=== PATIENT | male | born 1985 | race Caucasian/White ===

== ENCOUNTER 2018-06-18 20:52 | Emergency (ER) | payer OTHER ==
--- NOTE | 2018-06-18 21:23 | EDM.PDOC ---
ED HPI GENERAL MEDICAL PROBLEM - General Chief Complaint: Upper Extremity Injury/Pain Stated Complaint: POSS PULLED MUSCLE Time Seen by Provider: 06/18/18 21:03 Source of Information: Reports: Patient History Limitations: Reports: No Limitations - History of Present Illness INITIAL COMMENTS - FREE TEXT/NARRATIVE: Patient is a 32-year-old male presents emergency Department with right upper extremity arm pain. Patient states he was at work he pulled himself up onto a rink and felt the muscle pop and the muscle belly basically roll up into his arm. Patient complains of some weakness and pain currently. He is able to flex and extend his arm. Patient denies any other injury at this time. Onset: Sudden Duration: Hour(s): (1), Constant Location: Reports: Upper Extremity, Right Quality: Reports: Ache, Throbbing Severity: Moderate Improves with: Reports: None Worsens with: Reports: Movement Context: Reports: Activity, Lifting, Other (See history of present illness) Associated Symptoms: Reports: No Other Symptoms Right Arm Pain Score (Numeric/FACES): 6 - Related Data Allergies Allergy/AdvReac Type Severity Reaction Status Date / Time Sulfa (Sulfonamide Allergy Rash Verified 06/18/18 21:07 Antibiotics) Home Meds: Home Meds . [No Known Home Meds] 06/18/18 [History] Past Medical History - Past Health History Medical/Surgical History: Denies Medical/Surgical History Social & Family History - Tobacco Use Smoking Status *Q: Never Smoker Second Hand Smoke Exposure: No - Caffeine Use Caffeine Use: Reports: Coffee, Energy Drinks, Soda, Tea - Recreational Drug Use Recreational Drug Use: No Review of Systems - Review of Systems Review Of Systems: See Below Constitutional: Reports: No Symptoms Eyes: Reports: No Symptoms Ears: Reports: No Symptoms Nose: Reports: No Symptoms Mouth/Throat: Reports: No Symptoms Respiratory: Reports: No Symptoms Cardiovascular: Reports: No Symptoms GI/Abdominal: Reports: No Symptoms Genitourinary: Reports: No Symptoms Musculoskeletal: Reports: Arm Pain, Muscle Pain Skin: Reports: No Symptoms Neurological: Reports: No Symptoms Psychiatric: Reports: No Symptoms ED EXAM, GENERAL - Physical Exam Exam: See Below Exam Limited By: No Limitations General Appearance: Alert, WD/WN, Mild Distress Ears: Normal External Exam, Normal Canal, Hearing Grossly Normal Nose: Normal Inspection, Normal Mucosa, No Blood Throat/Mouth: Normal Inspection, Normal Lips, Normal Voice, No Airway Compromise Head: Atraumatic, Normocephalic Neck: Normal Inspection, Supple, Full Range of Motion Respiratory/Chest: No Respiratory Distress, Lungs Clear, Normal Breath Sounds, No Accessory Muscle Use Cardiovascular: Normal Peripheral Pulses, Regular Rate, Rhythm GI/Abdominal: Non-Tender, No Distention Back Exam: Full Range of Motion Extremities: Normal Inspection, Arm Pain, Limited Range of Motion (Patient has flexion and and extension capabilities. That he has limited flexion with some weakness and pain.) Neurological: Alert, Oriented, CN II-XII Intact, Normal Cognition, Normal Gait Psychiatric: Normal Affect, Normal Mood Skin Exam: Warm, Dry, Intact, Normal Color, No Rash Course - Vital Signs Last Recorded V/S: Last Vital Signs Temp 99.3 F 06/18/18 21:01 Pulse 88 06/18/18 21:01 Resp 13 06/18/18 21:01 BP 156/94 H 06/18/18 21:01 Pulse Ox 98 06/18/18 21:01 - Orders/Labs/Meds Orders: Active Orders 24 hr Category Date Time Status Communication Order [RC] ASDIRECTED Care 06/18/18 21:18 Ordered Departure - Departure Time of Disposition: 21:24 Disposition: Home, Self-Care 01 Condition: Good Clinical Impression: Biceps muscle tear Qualifiers: Encounter type: initial encounter Laterality: right Qualified Code(s): S46.211A - Strain of muscle, fascia and tendon of other parts of biceps, right arm, initial encounter - Discharge Information *PRESCRIPTION DRUG MONITORING PROGRAM REVIEWED*: Not Applicable *COPY OF PRESCRIPTION DRUG MONITORING REPORT IN PATIENT MANE: Not Applicable Instructions: Biceps Tendon Disruption (Distal), How to Use a Sling, Easy-to- Read Referrals: PCP,None [Primary Care Provider] - Forms: ED Department Discharge Additional Instructions: #1. Patient has an appointment scheduled for MRI of his upper extremity on tomorrow. #2. Patient is being instructed to call Dr. DENIS's office on tomorrow to make an appointment for follow-up after his MRI. #3. Patient's being instructed to use anti-inflammatory such as Motrin or Naprosyn or he may use Tylenol for pain control. #4 patient is being placed in a sling for support and is instructed on its use and diffuse. #5. Patient is being placed on a weight restriction no heavy lifting with his right arm nothing more than 3-5 pounds. - My Orders Last 24 Hours: My Active Orders 06/18/18 21:18 Communication Order [RC] ASDIRECTED - Assessment/Plan Last 24 Hours: My Active Orders 06/18/18 21:18 Communication Order [RC] ASDIRECTED
== END 2018-06-18 21:34 | disposition home or self-care (01) ==
LOC: JD.ED 20:52
DX: S46.211A Strain of muscle, fascia and tendon of other parts of biceps, right arm, initial encounter (principal); Z88.2 Allergy status to sulfonamides; X50.1XXA Overexertion from prolonged static or awkward postures, initial encounter
CPT/HCPCS: 99283

== ENCOUNTER 2018-07-28 10:05 | Day surgery (SDC) | payer OTHER ==
[~2018-07-28 10:05] MED LIST: Lidocaine 1%/Sod Bicarbonate in NS 8.4% 1 ML Syringe IDERM PRN; Sodium Chloride 0.9% 10 ML Syringe FLUSH PRN
[2018-07-28] MEDS: Lactated Ringers 1,000 ML IV SCH ×2 (10:30→15:48)
[2018-07-28] MEDS ORDERED: Albuterol 0.083% 2.5 MG/3 ML Neb Soln NEB ONE (10:41)
--- NOTE | 2018-07-28 10:46 | PCM.PREANE ---
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.) Type of Anesthesia Reaction: Other (see below) (History of a challenging intubation ) Family History of Anesthesia Reaction: No Transfusion History: No Prior Transfusion(s) Intubation History: History of Difficulty Intubation - Review of Systems General: No Symptoms Pulmonary: No Symptoms (quit smoking in 2007) Cardiovascular: No Symptoms (undiagnosed elevated high blood pressure with no treatment.) Gastrointestinal: No Symptoms Neurological: Numbness (left hand) Other: Reports: None - Physical Assessment NPO Status Date: 07/27/18 NPO Status Time: 21:00 Pulse: 69 O2 Sat by Pulse Oximetry: 92 Respiratory Rate: 16 Blood Pressure: 176/108 Temperature: 36.8 C Height: 1.78 m Weight: 121.109 kg ASA Class: 2 Mental Status: Alert & Oriented x3 Airway Class: Mallampati = 2 Dentition: Reports: Normal Dentition, Caries Thyro-Mental Finger Breadths: 3 Mouth Opening Finger Breadths: 3 ROM/Head Extension: Full Lungs: Clear to Auscultation, Normal Respiratory Effort, Decreased Breath Sounds Cardiovascular: Regular Rate, Regular Rhythm, No Murmurs - Lab Values: MRSA screen negative. Labs reviewed and noted and within acceptable ranges to proceed with scheduled procedure. - Imaging/EKG Impressions: EKG: SR rate=71, ST elevation, probable normal early repolarization pattern. - Allergies Allergies/Adverse Reactions: Allergies Allergy/AdvReac Type Severity Reaction Status Date / Time Sulfa (Sulfonamide Allergy Rash Verified 06/18/18 21:07 Antibiotics) - Anesthesia Plan Pre-Op Medication Ordered: None - Acknowledgements Anesthesia Type Planned: General Anesthesia Pt an Appropriate Candidate for the Planned Anesthesia: Yes Alternatives and Risks of Anesthesia Discussed w Pt/Guardian: Yes Pt/Guardian Understands and Agrees with Anesthesia Plan: Yes PreAnesthesia Questionnaire - Past Health History Medical/Surgical History: Denies Medical/Surgical History Cardiovascular History: Reports: Other (See Below) Other Cardiovascular History: undiagnosed hypertension Gastrointestinal History: Endocrine/Metabolic History: Reports: Obesity/BMI 30+ - Past Surgical History Musculoskeletal Surgical History: Reports: Other (See Below) Other Musculoskeletal Surgeries/Procedures:: ORIF right wrist, right biceps tendon - SUBSTANCE USE Smoking Status *Q: Former Smoker Tobacco Use Within Last Twelve Months: Snuff/Dip Recreational Drug Use History: No - HOME MEDS Home Medications: Home Meds Acetaminophen/HYDROcodone [[place] 325-5 MG] 1 tab PO ASDIRECTED PRN 07/28/18 [ History] - CURRENT (IN HOUSE) MEDS Current Meds: Current Medications Lactated Ringer's (Ringers, Lactated) 1,000 mls @ 125 mls/hr IV ASDIRECTED DESTINY Stop: 07/28/18 23:00 Lidocaine/Sodium Bicarbonate (Buffered Lidocaine 1% In Ns 8.4%) 0.25 ml IDERM ONETIME PRN PRN Reason: Prior to IV Start Stop: 07/28/18 18:00 Sodium Chloride (Saline Flush) 10 ml FLUSH ASDIRECTED PRN PRN Reason: Keep Vein Open Stop: 07/28/18 18:00
[2018-07-28] MEDS ORDERED: Dexamethasone 4 MG/ML SDV ONE (11:07)
[2018-07-28] MEDS ORDERED: Lactated Ringers 1,000 ML ONE (11:07)
[2018-07-28] MEDS ORDERED: Midazolam 1 MG/ML 2 ML SDV ONE ×2 (11:07→11:09)
[2018-07-28] MEDS ORDERED: Ondansetron 4 MG/2 ML SDV ONE (11:07)
[2018-07-28] MEDS ORDERED: ceFAZolin 1 GM Vial ONE (11:07)
[2018-07-28] MEDS ORDERED: Propofol 200 MG/20 ML SDV ONE ×2 (11:07→11:12)
[2018-07-28] MEDS ORDERED: Rocuronium 50 MG/5 ML Vial ONE ×2 (11:07→11:08)
[2018-07-28] MEDS ORDERED: fentaNYL 250 MCG/5 ML SDV ONE ×2 (11:07→12:48)
[2018-07-28] MEDS ORDERED: Lidocaine 1% 4 ML ONE (11:08)
[2018-07-28] MEDS ORDERED: Succinylcholine/Normal Saline 100 MG/5 ML Syringe ONE (11:14)
[2018-07-28] MEDS: Bupivacaine 0.25% 30 ML SDV ONE ×2 (12:07→14:08)
[2018-07-28] MEDS ORDERED: HYDROmorphone 0.5 MG/0.5 ML Syringe ONE ×3 (12:50→15:25)
[2018-07-28] MEDS ORDERED: Ketamine 500 mg/10 ML MDV ONE (12:52)
--- NOTE | 2018-07-28 14:31 | CR ---
Right elbow: Fluoroscopic spot views are obtained of the right elbow utilizing C-arm device. Study shows biceps tendon repair. Fluoroscopy time given as 25.3 seconds. Impression: 1. Operative study. Diagnostic code #2
[2018-07-28] MEDS ORDERED: Meperidine 50 MG/ML Vial IVPUSH PRN (14:33)
[2018-07-28] MEDS ORDERED: diphenhydrAMINE 50 MG/ML SDV IVPUSH PRN (14:33)
[2018-07-28] MEDS ORDERED: Ondansetron 4 MG/2 ML SDV IVPUSH PRN ×2 (14:33→17:46)
--- NOTE | 2018-07-28 14:33 | PCM.POSTAN ---
POST ANESTHESIA ASSESSMENT - MENTAL STATUS Mental Status: Alert, Oriented - VITAL SIGNS Pulse Rate: 93 SaO2: 91 Resp Rate: 14 Blood Pressure: 171/99 Temperature: 36.9 C - RESPIRATORY Respiratory Status: Respiratory Rate WNL, Airway Patent, O2 Saturation Stable, Supplemental Oxygen - CARDIOVASCULAR CV Status: Pulse Rate WNL, Blood Pressure Stable - GASTROINTESTINAL GI Status: No Symptoms - PAIN Pain Score: 0 - POST OP HYDRATION Hydration Status: Adequate & Stable
[2018-07-28] MEDS: fentaNYL 100 MCG/2 ML SDV IVPUSH PRN ×3 (14:42→15:44)
[2018-07-28] MEDS: HYDROmorphone 0.5 MG/0.5 ML Syringe IVPUSH ONE ×2 (14:53→15:27)
[2018-07-28] MEDS ORDERED: hydrALAZINE 20 MG/ML SDV IVPUSH PRN ×2 (14:58→17:40)
[2018-07-28] MEDS ORDERED: Labetalol 100 MG/20 ML MDV ONE (15:01)
[2018-07-28] MEDS ORDERED: Cyclobenzaprine 10 MG Tab PO ONE (15:32)
[2018-07-28] MEDS ORDERED: Acetaminophen/HYDROcodone 325-5 MG Tab PO PRN (16:58)
--- NOTE | 2018-07-28 17:10 | PCM.SN ---
- Free Text/Narrative Note: In to See Joe. Overall he is doing well s/p R Bicep repair day 0. He currently states his pain is 4-5/10 and denies and F/C, Headache, N/V/D, Chest pain, SOB, Cough. His BP has been elevated s/p surgery, was reported to be 160's/116, but has now gone down to 141/88. Talked with him and his who state he doesn't officially have a history of HTN, but he also hasn't gone to the doctor to be diagnosed. She states she is concerned that his BP is usually very elevated with stress and that he may also have Sleep Apnea- he snores and tends to be orthostatic. He hasn't had a sleep study, but is interested in him trying CPAP while he is here. I will put that order in and have Respiratory Therapy see him tonight. He is currently on 3L NC, was mid-80s per nursing on RA. He is not normally on O2 at home. No other concerns from nursing. Urinating. Using Incentive Spirometry. DVT prophylaxis. Physical Exam unremarkable- PERRLA, Lungs Clear, Normal Heart sounds, Neurovascularly intact in extremities with 3+ pulses. Will monitor his O2 continuously and BP Q4H while here on the floor for extended recovery.
[2018-07-28] MEDS ORDERED: Cyclobenzaprine 10 MG Tab PO PRN (17:40)
[2018-07-28] MEDS ORDERED: Acetaminophen 325 MG Tab PO PRN (17:44)
[2018-07-28] MEDS ORDERED: Scopolamine 1.5 MG Transdermal Patch TRDERM PRN (17:45)
[2018-07-28] MEDS: Acetaminophen/oxyCODONE 325-5 MG Tab PO PRN (17:56)
[2018-07-28] MEDS ORDERED: HYDROmorphone 1 MG/ML Syringe IVPUSH PRN (19:16)
--- NOTE | 2018-07-28 19:24 | PCM48HPAN ---
Post Anesthesia Note - EVALUATION WITHIN 48HRS OF ANESTHETIC Vital Signs in Normal Range: Yes Patient Participated in Evaluation: Yes Respiratory Function Stable: Yes Airway Patent: Yes Cardiovascular Function Stable: Yes Hydration Status Stable: Yes Pain Control Satisfactory: No (6/10 rated.) Nausea and Vomiting Control Satisfactory: Yes Mental Status Recovered: Yes Pulse Rate: 93 SaO2: 90 Resp Rate: 20 Temperature: 36.9 C Blood Pressure: 171/99 - COMMENTS/OBSERVATIONS Free Text/Narrative:: Discussed with patient and patient's options for improved pain control. Patient rates pain 6/10. Orders received from SEVERIANO Arana for hydoxizine, and anesthesia provided a dilauded IV order as well. Patient and informed again on interscalene block, and also addressed were the benefits and risks. Patient states pain location primarily noted in distal forearm area. Potential of block not able to catch the distal forearm addressed, and decision to wait on block at this time noted. Patient and encouraged to have nurse notify anesthesia if pain control is unsatisfactory.
[2018-07-28] MEDS: hydrOXYzine HCl 25 MG Tab PO PRN (19:37)
[2018-07-29] MEDS: Acetaminophen/oxyCODONE 325-5 MG Tab PO PRN ×3 (01:01→09:43)
--- NOTE | 2018-07-29 07:07 | PCM.CONSN ---
- General Info Date of Service: 07/29/18 Admission Dx/Problem (Free Text): Same day surgery Subjective Update: In to see Joe. He reports 5/10 pain. No concerns otherwise. BP has been better today. He reports baseline is 130-135/60s. He has not been medicated for this while here. Functional Status: Reports: Pain Controlled, Tolerating Diet, Ambulating, Urinating, Incentive Spirometry. Denies: New Symptoms - Review of Systems General: Reports: No Symptoms HEENT: Reports: No Symptoms Pulmonary: Reports: No Symptoms Cardiovascular: Reports: No Symptoms Gastrointestinal: Reports: No Symptoms Genitourinary: Reports: No Symptoms Musculoskeletal: Reports: Arm Pain Skin: Reports: No Symptoms Neurological: Reports: No Symptoms Psychiatric: Reports: No Symptoms - Patient Data Vitals - Most Recent: Last Vital Signs Temp 98.2 F 07/29/18 04:56 Pulse 71 07/29/18 04:56 Resp 16 07/29/18 04:56 BP 149/82 H 07/29/18 04:56 Pulse Ox 96 07/29/18 06:58 Weight - Most Recent: 266 lb 15.994 oz I&O - Last 24 Hours: Intake & Output 07/28/18 07/29/18 07/29/18 22:59 06:59 14:59 Intake Total 450 Balance 450 Med Orders - Current: Current Medications Acetaminophen (Tylenol) 650 mg PO Q4H PRN PRN Reason: Pain Cyclobenzaprine HCl (Flexeril) 10 mg PO Q8H PRN PRN Reason: Spasms Last Admin: 07/29/18 01:01 Dose: 10 mg Hydralazine HCl (Apresoline) 4 mg IVPUSH Q2H PRN PRN Reason: Hypertension Hydromorphone HCl (Dilaudid) 1 mg IVPUSH Q2H PRN PRN Reason: Pain Last Admin: 07/28/18 22:27 Dose: 1 mg Hydroxyzine HCl (Atarax) 25 - 50 mg PO Q6H PRN PRN Reason: Muscle Spasms Last Admin: 07/28/18 19:37 Dose: 50 mg Meperidine HCl (Meperidine) 12.5 mg IVPUSH ONETIME PRN PRN Reason: Shivering Miscellaneous Information (Remove Patch) 1 ea TRDERM Q72H DESTINY Last Admin: 07/28/18 17:57 Dose: Not Given Ondansetron HCl (Zofran) 4 mg IVPUSH Q4H PRN PRN Reason: Nausea Oxycodone/Acetaminophen (Percocet 325-5 Mg) 1 - 2 tab PO Q4H PRN PRN Reason: Pain Last Admin: 07/29/18 04:52 Dose: 2 tab Scopolamine (Transderm-Scop) 1.5 mg TRDERM Q72H PRN PRN Reason: Nausea Discontinued Medications Hydrocodone Bitart/Acetaminophen ([place] 325-5 Mg) 1 tab PO ASDIRECTED PRN PRN Reason: Pain Albuterol (Proventil Neb Soln) 2.5 mg NEB ONETIME ONE Stop: 07/28/18 10:42 Last Admin: 07/28/18 10:48 Dose: 2.5 mg Bupivacaine HCl (Marcaine 0.25%) Confirm Administered Dose 30 ml .ROUTE .STK- MED ONE Stop: 07/28/18 11:46 Last Admin: 07/28/18 14:08 Dose: 10 ml Cefazolin Sodium (Ancef) Confirm Administered Dose 2 gm .ROUTE .STK-MED ONE Stop: 07/28/18 11:08 Cyclobenzaprine HCl (Flexeril) 10 mg PO ONETIME ONE Stop: 07/28/18 15:33 Last Admin: 07/28/18 16:28 Dose: 10 mg Dexamethasone (Dexamethasone) Confirm Administered Dose 4 mg .ROUTE .STK-MED ONE Stop: 07/28/18 11:08 Diphenhydramine HCl (Benadryl) 25 mg IVPUSH Q6H PRN PRN Reason: Pruritis Stop: 07/28/18 18:00 Fentanyl (Sublimaze) Confirm Administered Dose 250 mcg .ROUTE .STK-MED ONE Stop: 07/28/18 11:08 Fentanyl (Sublimaze) Confirm Administered Dose 250 mcg .ROUTE .STK-MED ONE Stop: 07/28/18 12:49 Fentanyl (Sublimaze) 50 mcg IVPUSH Q5M PRN PRN Reason: Pain Stop: 07/28/18 18:00 Last Admin: 07/28/18 15:44 Dose: 50 mcg Hydralazine HCl (Apresoline) 4 mg IVPUSH Q2H PRN PRN Reason: Hypertension Stop: 07/28/18 19:00 Hydromorphone HCl (Dilaudid) Confirm Administered Dose 0.5 mg .ROUTE .STK-MED ONE Stop: 07/28/18 12:51 Hydromorphone HCl (Dilaudid) Confirm Administered Dose 0.5 mg .ROUTE .STK-MED ONE Stop: 07/28/18 12:51 Hydromorphone HCl (Dilaudid) 0.5 mg IVPUSH ONETIME ONE Stop: 07/28/18 14:34 Last Admin: 07/28/18 15:27 Dose: 0.5 mg Hydromorphone HCl (Dilaudid) Confirm Administered Dose 0.5 mg .ROUTE .STK-MED ONE Stop: 07/28/18 15:26 Last Admin: 07/28/18 16:43 Dose: Not Given Lactated Ringer's (Ringers, Lactated) 1,000 mls @ 125 mls/hr IV ASDIRECTED DESTINY Stop: 07/28/18 23:00 Last Admin: 07/28/18 15:48 Dose: 125 mls/hr Lactated Ringer's (Ringers, Lactated) Confirm Administered Dose 1,000 mls @ as directed .ROUTE .STK-MED ONE Stop: 07/28/18 11:08 Lidocaine HCl (Xylocaine-Mpf 1%) Confirm Administered Dose 4 mls @ as directed .ROUTE .STK-MED ONE Stop: 07/28/18 11:09 Ketamine HCl (Ketalar) Confirm Administered Dose 500 mg .ROUTE .STK-MED ONE Stop: 07/28/18 12:53 Labetalol HCl (Normodyne) Confirm Administered Dose 100 mg .ROUTE .STK-MED ONE Stop: 07/28/18 15:02 Lidocaine/Sodium Bicarbonate (Buffered Lidocaine 1% In Ns 8.4%) 0.25 ml IDERM ONETIME PRN PRN Reason: Prior to IV Start Stop: 07/28/18 18:00 Last Admin: 07/28/18 10:29 Dose: 0.25 ml Midazolam HCl (Versed 1 Mg/Ml) Confirm Administered Dose 2 mg .ROUTE .STK-MED ONE Stop: 07/28/18 11:08 Midazolam HCl (Versed 1 Mg/Ml) Confirm Administered Dose 2 mg .ROUTE .STK-MED ONE Stop: 07/28/18 11:10 Ondansetron HCl (Zofran) Confirm Administered Dose 4 mg .ROUTE .STK-MED ONE Stop: 07/28/18 11:08 Ondansetron HCl (Zofran) 4 mg IVPUSH ONETIME PRN PRN Reason: Nausea/Vomiting Stop: 07/28/18 18:00 Propofol (Diprivan 20 Ml) Confirm Administered Dose 400 mg .ROUTE .STK-MED ONE Stop: 07/28/18 11:08 Propofol (Diprivan 20 Ml) Confirm Administered Dose 200 mg .ROUTE .STK-MED ONE Stop: 07/28/18 11:13 Rocuronium [place] (Zemuron) Confirm Administered Dose 50 mg .ROUTE .STK-MED ONE Stop: 07/28/18 11:08 Rocuronium [place] (Zemuron) Confirm Administered Dose 50 mg .ROUTE .STK-MED ONE Stop: 07/28/18 11:09 Sodium Chloride (Saline Flush) 10 ml FLUSH ASDIRECTED PRN PRN Reason: Keep Vein Open Stop: 07/28/18 18:00 Succinylcholine Chloride (Succinylcholine In Ns Pf) Confirm Administered Dose 200 mg .ROUTE .STK-MED ONE Stop: 07/28/18 11:15 - Exam Quality Assessment: DVT Prophylaxis General: Alert, Oriented, Cooperative, No Acute Distress HEENT: Pupils Equal, Pupils Reactive, EOMI, Mucous Membr. Moist/[place] Neck: Supple, Trachea Midline Lungs: Clear to Auscultation, Normal Respiratory Effort Cardiovascular: Regular Rate, Regular Rhythm GI/Abdominal Exam: Normal Bowel Sounds, Soft, Non-Tender, No Distention (Male) Exam: Deferred Back Exam: Normal Inspection, Full Range of Motion Extremities: No Pedal Edema, Normal Capillary Refill, Arm Pain, Limited Range of Motion Peripheral Pulses: 3+: Radial (L), Radial (R), Dorsalis Pedis (L), Dorsalis Pedis (R) Skin: Warm, Dry, Intact Neurological: No New Focal Deficit Psy/Mental Status: Alert, Normal Affect, Normal Mood Consult PN Assessment/Plan POD#: 1 Procedures: Procedures EMERGENCY DEPT VISIT (06/18/18) MR-STAPH DNA AMP PROBE (07/22/18) MRI UPPER EXTREMITY W/O DYE (06/20/18) X-RAY EXAM OF ANKLE (05/21/14) X-RAY EXAM OF FOOT (05/21/14) X-RAY EXAM OF SKULL (06/20/18) (1) Biceps muscle tear SNOMED Code(s): 682978940, 192745475 Code(s): S46.119A - STRAIN OF MUSC/FASC/TEND LONG HEAD OF BICEPS, UNSP ARM, INIT Priority: High Current Visit: Yes Qualifiers: Encounter type: subsequent encounter Laterality: right Qualified Code(s) : S46.211D - Strain of muscle, fascia and tendon of other parts of biceps, right arm, subsequent encounter (2) Malignant hypertension SNOMED Code(s): 26347904 Code(s): I10 - ESSENTIAL (PRIMARY) HYPERTENSION Priority: High Current Visit: Yes Problem List Initiated/Reviewed/Updated: Yes Plan: I/P: Acute: S/P right distal biceps tendon repair with Allograft - post-operative day 1 -Management per primary team Malignant HTN, improved to resolved -Pain management per primary care team -PRN hydralazine -Likely 2/2 pain Chronic: None Plan: CM for discharge planning GI prophylaxis Home medications as indicated Other orders as listed above Routine AM labs He is a full code. He does not have a PCP. Overall Joe did well. His blood pressure normalized on its own. This was likely 2/2 pain. He reports normal BP for him is 130-135/60's. He was instructed to obtain a BP cuff and take his BP BID. He does not have a PCP and should establish with one. Recommend f/u with PCP once pain subsides from surgery to monitor BP and for general health check-up. We will sign off. Thank you for allowing us to participate in the care of this patient!!
[2018-07-29] MEDS: hydrOXYzine HCl 25 MG Tab PO PRN (08:03)
--- NOTE | 2018-07-29 08:11 | PCM48HPAN ---
Post Anesthesia Note - EVALUATION WITHIN 48HRS OF ANESTHETIC Vital Signs in Normal Range: Yes Patient Participated in Evaluation: Yes Respiratory Function Stable: Yes Airway Patent: Yes Cardiovascular Function Stable: Yes Hydration Status Stable: Yes Pain Control Satisfactory: Yes (taking pain meds) Nausea and Vomiting Control Satisfactory: Yes Mental Status Recovered: Yes Pulse Rate: 75 Resp Rate: 20 Temperature: 97.9 F Blood Pressure: 131/74
--- NOTE | 2018-07-30 08:40 | PCM.SURGPN ---
- General Info Date of Service: 07/29/18 POD#: 1 Functional Status: Reports: Pain Controlled, Tolerating Diet, Ambulating, Urinating - Review of Systems Musculoskeletal: Reports: Other (The pt's pain has been managable.) - Patient Data Vitals - Most Recent: Last Vital Signs Temp 97.9 F 07/29/18 08:11 Pulse 65 07/29/18 09:46 Resp 20 07/29/18 08:11 BP 130/69 07/29/18 09:46 Pulse Ox 96 07/29/18 09:46 Weight - Most Recent: 266 lb 15.994 oz Med Orders - Current: Current Medications Discontinued Medications Acetaminophen (Tylenol) 650 mg PO Q4H PRN PRN Reason: Pain Hydrocodone Bitart/Acetaminophen ([place] 325-5 Mg) 1 tab PO ASDIRECTED PRN PRN Reason: Pain Albuterol (Proventil Neb Soln) 2.5 mg NEB ONETIME ONE Stop: 07/28/18 10:42 Last Admin: 07/28/18 10:48 Dose: 2.5 mg Bupivacaine HCl (Marcaine 0.25%) Confirm Administered Dose 30 ml .ROUTE .STK- MED ONE Stop: 07/28/18 11:46 Last Admin: 07/28/18 14:08 Dose: 10 ml Cefazolin Sodium (Ancef) Confirm Administered Dose 2 gm .ROUTE .STK-MED ONE Stop: 07/28/18 11:08 Cyclobenzaprine HCl (Flexeril) 10 mg PO ONETIME ONE Stop: 07/28/18 15:33 Last Admin: 07/28/18 16:28 Dose: 10 mg Cyclobenzaprine HCl (Flexeril) 10 mg PO Q8H PRN PRN Reason: Spasms Last Admin: 07/29/18 01:01 Dose: 10 mg Dexamethasone (Dexamethasone) Confirm Administered Dose 4 mg .ROUTE .STK-MED ONE Stop: 07/28/18 11:08 Diphenhydramine HCl (Benadryl) 25 mg IVPUSH Q6H PRN PRN Reason: Pruritis Stop: 07/28/18 18:00 Fentanyl (Sublimaze) Confirm Administered Dose 250 mcg .ROUTE .STK-MED ONE Stop: 07/28/18 11:08 Fentanyl (Sublimaze) Confirm Administered Dose 250 mcg .ROUTE .STK-MED ONE Stop: 07/28/18 12:49 Fentanyl (Sublimaze) 50 mcg IVPUSH Q5M PRN PRN Reason: Pain Stop: 07/28/18 18:00 Last Admin: 07/28/18 15:44 Dose: 50 mcg Hydralazine HCl (Apresoline) 4 mg IVPUSH Q2H PRN PRN Reason: Hypertension Stop: 07/28/18 19:00 Hydralazine HCl (Apresoline) 4 mg IVPUSH Q2H PRN PRN Reason: Hypertension Hydromorphone HCl (Dilaudid) Confirm Administered Dose 0.5 mg .ROUTE .STK-MED ONE Stop: 07/28/18 12:51 Hydromorphone HCl (Dilaudid) Confirm Administered Dose 0.5 mg .ROUTE .STK-MED ONE Stop: 07/28/18 12:51 Hydromorphone HCl (Dilaudid) 0.5 mg IVPUSH ONETIME ONE Stop: 07/28/18 14:34 Last Admin: 07/28/18 15:27 Dose: 0.5 mg Hydromorphone HCl (Dilaudid) Confirm Administered Dose 0.5 mg .ROUTE .STK-MED ONE Stop: 07/28/18 15:26 Last Admin: 07/28/18 16:43 Dose: Not Given Hydromorphone HCl (Dilaudid) 1 mg IVPUSH Q2H PRN PRN Reason: Pain Last Admin: 07/28/18 22:27 Dose: 1 mg Hydroxyzine HCl (Atarax) 25 - 50 mg PO Q6H PRN PRN Reason: Muscle Spasms Last Admin: 07/29/18 08:03 Dose: 50 mg Lactated Ringer's (Ringers, Lactated) 1,000 mls @ 125 mls/hr IV ASDIRECTED DESTINY Stop: 07/28/18 23:00 Last Admin: 07/28/18 15:48 Dose: 125 mls/hr Lactated Ringer's (Ringers, Lactated) Confirm Administered Dose 1,000 mls @ as directed .ROUTE .STK-MED ONE Stop: 07/28/18 11:08 Lidocaine HCl (Xylocaine-Mpf 1%) Confirm Administered Dose 4 mls @ as directed .ROUTE .STK-MED ONE Stop: 07/28/18 11:09 Ketamine HCl (Ketalar) Confirm Administered Dose 500 mg .ROUTE .STK-MED ONE Stop: 07/28/18 12:53 Labetalol HCl (Normodyne) Confirm Administered Dose 100 mg .ROUTE .STK-MED ONE Stop: 07/28/18 15:02 Lidocaine/Sodium Bicarbonate (Buffered Lidocaine 1% In Ns 8.4%) 0.25 ml IDERM ONETIME PRN PRN Reason: Prior to IV Start Stop: 07/28/18 18:00 Last Admin: 07/28/18 10:29 Dose: 0.25 ml Meperidine HCl (Meperidine) 12.5 mg IVPUSH ONETIME PRN PRN Reason: Shivering Midazolam HCl (Versed 1 Mg/Ml) Confirm Administered Dose 2 mg .ROUTE .STK-MED ONE Stop: 07/28/18 11:08 Midazolam HCl (Versed 1 Mg/Ml) Confirm Administered Dose 2 mg .ROUTE .STK-MED ONE Stop: 07/28/18 11:10 Miscellaneous Information (Remove Patch) 1 ea TRDERM Q72H DESITNY Last Admin: 07/28/18 17:57 Dose: Not Given Ondansetron HCl (Zofran) Confirm Administered Dose 4 mg .ROUTE .STK-MED ONE Stop: 07/28/18 11:08 Ondansetron HCl (Zofran) 4 mg IVPUSH ONETIME PRN PRN Reason: Nausea/Vomiting Stop: 07/28/18 18:00 Ondansetron HCl (Zofran) 4 mg IVPUSH Q4H PRN PRN Reason: Nausea Oxycodone/Acetaminophen (Percocet 325-5 Mg) 1 - 2 tab PO Q4H PRN PRN Reason: Pain Last Admin: 07/29/18 09:43 Dose: 2 tab Propofol (Diprivan 20 Ml) Confirm Administered Dose 400 mg .ROUTE .STK-MED ONE Stop: 07/28/18 11:08 Propofol (Diprivan 20 Ml) Confirm Administered Dose 200 mg .ROUTE .STK-MED ONE Stop: 07/28/18 11:13 Rocuronium [place] (Zemuron) Confirm Administered Dose 50 mg .ROUTE .STK-MED ONE Stop: 07/28/18 11:08 Rocuronium [place] (Zemuron) Confirm Administered Dose 50 mg .ROUTE .STK-MED ONE Stop: 07/28/18 11:09 Scopolamine (Transderm-Scop) 1.5 mg TRDERM Q72H PRN PRN Reason: Nausea Sodium Chloride (Saline Flush) 10 ml FLUSH ASDIRECTED PRN PRN Reason: Keep Vein Open Stop: 07/28/18 18:00 Succinylcholine Chloride (Succinylcholine In Ns Pf) Confirm Administered Dose 200 mg .ROUTE .STK-MED ONE Stop: 07/28/18 11:15 - Exam Wound/Incisions: Dressing Dry and Intact General: Alert, Cooperative, No Acute Distress Lungs: Normal Respiratory Effort Extremities: Other (The pt was able to flex and extend all digits of RUE. He was able to sense light touch at all digits. He reported decreased ability to sense touch for a small patch at dorsal distal forearm. Capillary refill normal for RUE.) - Problem List Review Problem List Initiated/Reviewed/Updated: Yes - My Orders Last 24 Hours: Active Orders 24 hr Category Date Time Status Communication Order [RC] ASDIRECTED Care 07/29/18 08:05 Active - Assessment Assessment (Free Text/Narrative):: POD#1 - right distal biceps tendon repair with allograft - Plan Plan (Free Text/Narrative):: 1. Discharge to home today. The pt's pain is managed and his BPs have improved. 2. f/u with PCP for BP management. 3. f/u at ortho Clinic scheduled. 4. Percocet, Flexeril and hydroxyzine for pain management at home. The pt's case was discussed with Dr. Bui.
--- NOTE | 2018-08-06 05:32 | PCM.OPNOTE ---
- General Post-Op/Procedure Note Date of Surgery/Procedure: 07/28/18 Operative Procedure(s): right distal biceps tendon rupture Pre Op Diagnosis: right distal biceps tendon rupture Post-Op Diagnosis: Same Anesthesia Technique: General ET Tube, Local Primary Surgeon: Ash Bui Anesthesia Provider: Ernie Andujar Signal Wirer: Celina Zacarias EBL in mLs: 25 Complications: None Condition: Good
--- NOTE | 2018-08-06 22:50 | OR ---
DATE OF OPERATION: 07/28/2018 SURGEON: Ash Bui MD OPERATION PERFORMED: Reconstruction of right distal biceps tendon with repair. PREOPERATIVE DIAGNOSIS: Right distal biceps tendon rupture, chronic. POSTOPERATIVE DIAGNOSIS: Right distal biceps tendon rupture, chronic. ANESTHESIA: General endotracheal intubation with local. ANESTHESIA PROVIDER: Ernie Andujar. ANSWERER: Celina Zacarias PA-C. ESTIMATED BLOOD LOSS: 25 mL. COMPLICATIONS: None. CONDITION: Stable. DESCRIPTION OF PROCEDURE: The patient was identified in the preop holding area where proper site was marked and identified by the surgeon. The patient was taken back to the operating theater where after adequate anesthesia the patient's right upper extremity was sterilely prepped and draped in the usual sterile fashion. OR time-out was performed. The patient received 2 g IV Ancef. At this time, sterile tourniquet was utilized, and the right upper extremity was exsanguinated. Tourniquet was insufflated to 225 mmHg. At this time, the previous transverse incision in the forearm was utilized. Blunt dissection was taken down again to the biceps tendon that was noted to only have roughly 4 mm tendon left. At this time, I was able to identify and trace back all the way to the musculotendinous junction. Once this was identified, we decided that we would first whipstitch the anterior tibialis tendon graft that would be utilized to reconstruct the distal biceps tendon. At this time, using a #2 FiberLoop, we were able to stitch the 2 ends of the graft together, and at this time, a guide pin was placed in the radial tuberosity in a 30-degree position both distally and ulnarly. The guide pin was then placed bi-cortically and the acorn reamer was then used just uni-cortically. At this time, it was found to be in adequate position on fluoroscopic views. The EndoButton was then placed past the far cortex and was flipped and the graft was shuttled into the previous drill hole. At this time, the interference screw then was also placed and was found to have good fixation. At this time, using what remaining tendon there was, I was able to whipstitch, and I used a modified Krackow stitch to tension the graft onto the remaining biceps tendon all the way back up to the musculotendinous junction. It was significantly difficult secondary to the significant shortening of the biceps as well as the patient's significant girth in his biceps region and this did take some time, but did have good tubularization of the tendon as well as the graft all the way back to the musculotendinous junction with good samaritan of the biceps tendon. I was able to do the hook test with the reconstructed tendon and able to lift the patient's arm up off the table. At this time, it was decided that things looked good and the tension was adequate. Adequate saline was irrigated through the wound. 3-0 Vicryl was used subcutaneously and Monocryl and Dermabond were used for the skin. The patient was placed in a posterior slab splint with roughly 60 degrees of flexion and was sent to the PACU in stable condition. MANDI /[id number]
== END 2018-07-29 10:42 | disposition home or self-care (01) ==
LOC: JD.MS 10:05 → JD.SDS 10:05
PROVIDERS: ATTEND Orthopaedic Surgery
DX: S46.211A Strain of muscle, fascia and tendon of other parts of biceps, right arm, initial encounter (principal); I10 Essential (primary) hypertension; E66.9 Obesity, unspecified; Z68.41 Body mass index [BMI] 40.0-44.9, adult; Z87.891 Personal history of nicotine dependence; Z88.2 Allergy status to sulfonamides; X58.XXXA Exposure to other specified factors, initial encounter
CPT/HCPCS: 24342; 76000; 93005; 94640; A9270; C1762; C1776; J0330; J0690; J1100; J1170; J2250; J2405; J2704; J3010; J3490; J7120; 01710; J2001